=== PATIENT | male | born 1935 | race Caucasian/White ===

== ENCOUNTER 2021-01-21 19:00 | Outpatient (CLI) | payer MEDICARE | END 2021-01-21 19:01 | disposition home or self-care (01) | LOC: SLEEPLAB 19:00 | PROVIDERS: ATTEND Internal Medicine | DX: G47.33 Obstructive sleep apnea (adult) (pediatric) (principal); R53.83 Other fatigue; I11.9 Hypertensive heart disease without heart failure; R06.83 Snoring; I25.10 Atherosclerotic heart disease of native coronary artery without angina pectoris; G47.00 Insomnia, unspecified; G47.31 Primary central sleep apnea; G47.10 Hypersomnia, unspecified; Z95.0 Presence of cardiac pacemaker | CPT/HCPCS: 95810 ==

== ENCOUNTER 2022-01-05 09:42 | Outpatient (CLI) | payer OTHER ==
[2022-01-05] MEDS ORDERED: Iopamidol 370 76% 100 ML VIAL ONE (10:59)
== END 2022-01-05 09:43 | disposition home or self-care (01) ==
LOC: CT 09:42
PROVIDERS: ATTEND Urology
DX: C61 Malignant neoplasm of prostate (principal); C64.2 Malignant neoplasm of left kidney, except renal pelvis; C79.51 Secondary malignant neoplasm of bone; I71.4 Abdominal aortic aneurysm, without rupture; N40.0 Benign prostatic hyperplasia without lower urinary tract symptoms; N28.1 Cyst of kidney, acquired
CPT/HCPCS: 74178; 78306; 82565; A9503; Q9967

== ENCOUNTER 2022-08-20 09:44 | Outpatient (CLI) | payer OTHER | END 2022-08-20 09:45 | disposition home or self-care (01) | LOC: NM 09:44 | PROVIDERS: ATTEND Internal Medicine Hematology & Oncology | DX: C61 Malignant neoplasm of prostate (principal); C64.2 Malignant neoplasm of left kidney, except renal pelvis; C79.89 Secondary malignant neoplasm of other specified sites; N28.1 Cyst of kidney, acquired; I71.43 Infrarenal abdominal aortic aneurysm, without rupture; R91.1 Solitary pulmonary nodule; Z90.5 Acquired absence of kidney | CPT/HCPCS: 74178; 78306; A9503 ==

== ENCOUNTER 2022-11-11 08:14 | Outpatient (CLI) | payer OTHER | END 2022-11-11 08:15 | disposition home or self-care (01) | LOC: BICMAMMO 08:14 | PROVIDERS: ATTEND Internal Medicine | DX: Z13.820 Encounter for screening for osteoporosis (principal); M85.851 Other specified disorders of bone density and structure, right thigh; M85.852 Other specified disorders of bone density and structure, left thigh; Z85.46 Personal history of malignant neoplasm of prostate | CPT/HCPCS: 77080 ==

== ENCOUNTER 2023-02-11 08:08 | Outpatient (CLI) | payer OTHER | END 2023-02-11 08:09 | disposition home or self-care (01) | LOC: CT 08:08 | PROVIDERS: ATTEND Internal Medicine Hematology & Oncology | DX: C61 Malignant neoplasm of prostate (principal); C64.2 Malignant neoplasm of left kidney, except renal pelvis | CPT/HCPCS: 71250; 74177; 78306; A9503 ==

== ENCOUNTER 2023-12-17 09:40 | Emergency (ER) | payer MEDICARE ==
[2023-12-17 10:31] LABS: #Basophils Less than 0.03 10x3/uL (0.0-0.2); #Eosinphils Less than 0.03 10x3/uL (0.0-0.7); %Basophils 0.1 % (0.0-1.0); %Lymphocytes 8.5 % (21.0-51.0); %Monocytes 12.3 % (0.0-10.0); %Neutrophils 78.7 % (42.0-75.0); Hematocrit 38.9 % (42.0-52.0); Hemoglobin 12.9 g/dL (14.0-18.0); Mean Corpuscular HGB CONC 33.2 g/dL (32.0-36.0); Mean Corpuscular Hemoglobin 31.4 pg (27.0-31.0); Mean Corpuscular Volume 94.6 fL (78.0-98.0); Mean Platelet Volume 10.9 fL (7.4-10.4); Platelet Count 181 10x3/uL (130-400); RBC Distribution Width 16.1 % (11.5-14.5); Red Blood Cell (RBC) Count 4.11 mill/uL (4.70-6.10)
[2023-12-17] MEDS ORDERED: cefTRIAXone (ROCEPHIN) 1 GM VIAL ONE (10:36)
[2023-12-17] MEDS ORDERED: Sodium Chloride 0.9% 100 ML ONE (10:37)
[2023-12-17 10:53] LABS: ALT (SGPT) 77 U/L (8-55); AST (SGOT) 79 U/L (5-34); Albumin 3.1 g/dL (3.4-4.8); Alkaline Phosphatase 55 U/L (40-110); Anion Gap 16 mmol/L (10-20); BUN (Urea Nitrogen) 32 mg/dL (8.4-25.7); Bilirubin, Total 1.1 mg/dL (0.2-1.2); Calc. Creatinine Clearance 0 mL/min (70-130); Calcium 8.7 mg/dL (7.8-10.44); Carbon Dioxide 18 mmol/L (23-31); Chloride 99 mmol/L (98-107); Estimated GFR 48; Globulin 2.7 g/dL (2.4-3.5); Glucose 110 mg/dL (83-110); Potassium 4.6 mmol/L (3.5-5.1); Protein, Total 5.8 g/dL (5.8-8.1); Sodium 128 mmol/L (136-145)
[2023-12-17] MEDS ORDERED: Iopamidol-370 76% 500 ML MDV (1 ML CHARGE) ONE (11:09)
[2023-12-17] MEDS ORDERED: Furosemide 40 MG (4 mL) VIAL ONE (11:19)
[2023-12-17] MEDS ORDERED: Azithromycin 500 MG VIAL ONE (11:20)
== END 2023-12-17 17:00 | disposition short-term general hospital (02) ==
LOC: ERS 09:40
DX: I11.0 Hypertensive heart disease with heart failure (principal); I50.9 Heart failure, unspecified; T82.198A Other mechanical complication of other cardiac electronic device, initial encounter; E78.5 Hyperlipidemia, unspecified; Z79.899 Other long term (current) drug therapy
CPT/HCPCS: 71045; 71260; 80053; 83880; 84484; 85025; 87040; 93005; 96365; 96367; 96375; 99285; J0456; J0696; J1940; Q9967; 36415

== ENCOUNTER 2024-01-11 14:39 | Emergency (ER) | payer MEDICARE | END 2024-01-11 17:24 | disposition home or self-care (01) | LOC: ERS 14:39 | DX: S09.90XA Unspecified injury of head, initial encounter (principal); S82.142A Displaced bicondylar fracture of left tibia, initial encounter for closed fracture; I48.91 Unspecified atrial fibrillation; I10 Essential (primary) hypertension; E78.5 Hyperlipidemia, unspecified; W01.198A Fall on same level from slipping, tripping and stumbling with subsequent striking against other object, initial encounter; Z79.899 Other long term (current) drug therapy | CPT/HCPCS: 70450 ==

== ENCOUNTER 2024-02-28 08:20 | Outpatient (CLI) | payer MEDICARE | END 2024-02-28 08:21 | disposition home or self-care (01) | LOC: CT 08:20 | PROVIDERS: ATTEND Internal Medicine Hematology & Oncology | DX: C61 Malignant neoplasm of prostate (principal); C64.2 Malignant neoplasm of left kidney, except renal pelvis; C79.51 Secondary malignant neoplasm of bone | CPT/HCPCS: 71250; 74177; 78306; A9503 ==

== ENCOUNTER 2024-11-24 13:27 | Outpatient (CLI) | payer MEDICARE | END 2024-11-24 13:28 | disposition home or self-care (01) | LOC: BICCT 13:27 | PROVIDERS: ATTEND Internal Medicine Hematology & Oncology | DX: C64.2 Malignant neoplasm of left kidney, except renal pelvis (principal); C61 Malignant neoplasm of prostate; C79.51 Secondary malignant neoplasm of bone; I71.9 Aortic aneurysm of unspecified site, without rupture; R59.0 Localized enlarged lymph nodes; R93.421 Abnormal radiologic findings on diagnostic imaging of right kidney | CPT/HCPCS: 74150 ==

== ENCOUNTER 2025-02-16 12:45 | Outpatient (CLI) | payer MEDICARE | END 2025-02-16 12:46 | disposition home or self-care (01) | LOC: BICCT 12:45 | PROVIDERS: ATTEND Internal Medicine Hematology & Oncology | DX: C61 Malignant neoplasm of prostate (principal); C64.2 Malignant neoplasm of left kidney, except renal pelvis; R59.0 Localized enlarged lymph nodes; R91.1 Solitary pulmonary nodule; N28.89 Other specified disorders of kidney and ureter; I71.43 Infrarenal abdominal aortic aneurysm, without rupture; Z90.5 Acquired absence of kidney | CPT/HCPCS: 74150 ==